=== PATIENT | female | born 1960 | race Caucasian/White ===

== ENCOUNTER 2020-04-02 14:21 | Emergency (ER) | payer MEDICAID ==
[~2020-04-02] VITALS: Ht 165.1 cm; Wt 72.7 kg
[2020-04-02] MEDS ORDERED: ONDANSETRON HCL 4MG/2ML INJ IV STA (15:49)
[2020-04-02] MEDS ORDERED: SODIUM CHLORIDE 0.9% 1,000 ML IV ONE (15:49)
[2020-04-02] MEDS ORDERED: KETOROLAC 30MG/ML VIAL IV STA (15:49)
[2020-04-02 16:57] LABS: BASOPHILS % 0.5 % (0.0-2.0); EOSINOPHILS % 10.7 % (0.0-5.0); HEMATOCRIT. 38.9 % (36.0-48.0); HEMOGLOBIN. 13.3 g/dL (12.0-16.0); LYMPHOCYTES % 29.5 % (20.0-50.0); MEAN CORPUSCULAR HEMOGLOBIN 30.5 pg (28.0-32.0); MEAN CORPUSCULAR VOLUME 89.4 fL (81.0-99.0); MEAN PLATELET VOLUME 8.6 fl (7.4-10.4); MONOCYTES % 11.3 % (2.0-8.0); PLATELET 198 x1000/uL (130-400); RED BLOOD CELL COUNT 4.35 mill/uL (4.2-5.4); RED CELL DISTRIBUTION WIDTH 13.1 % (11.6-14.6)
[2020-04-02 17:07] LABS: PROTHROMBIN TIME 10.2 sec (9.6-11.0)
[2020-04-02 17:48] LABS: CLARITY URINE CLOUDY (CLEAR); COLOR URINE DK YELLOW (YELLOW); KETONES URINE TRACE (NEGATIVE); LEUKOCYTE ESTERASE URINE 1+ (NEGATIVE); NITRITE URINE NEGATIVE (NEGATIVE); OCCULT BLOOD URINE NEGATIVE (NEGATIVE); PH URINE 5.5 (4.5-8.0); PROTEIN URINE 2+ (NEGATIVE); SPECIFIC GRAVITY URINE 1.021 (1.005-1.030)
[2020-04-02 18:14] LABS: *AMPHETAMINES SCREEN URINE NEGATIVE (NEGATIVE); *BARBITURATES SCREEN URINE NEGATIVE (NEGATIVE); *BENZODIAZEPINES SCREEN URINE NEGATIVE (NEGATIVE); *COCAINE SCREEN URINE NEGATIVE (NEGATIVE)
[2020-04-02 18:15] LABS: CANNABINOID URINE SCREEN NEGATIVE (NEGATIVE); METHADONE URINE SCREEN NEGATIVE (NEGATIVE); OPIATES URINE SCREEN NEGATIVE (NEGATIVE); PHENCYCLIDINE URINE SCREEN NEGATIVE (NEGATIVE)
[2020-04-02 19:24] VITALS: BP 155/69
== END 2020-04-02 19:25 | disposition home or self-care (01) ==
LOC: ER 14:21 → EDBD 14:21 → ER 19:25
DX: I73.9 Peripheral vascular disease, unspecified (principal); N30.00 Acute cystitis without hematuria; Z98.890 Other specified postprocedural states
CPT/HCPCS: 36415; 71045; 80048; 80305; 81003; 85025; 85610; 93970; 96361; 96374; 96375; 99285; J1885; J2405; J7030

== ENCOUNTER 2020-08-13 20:28 | Emergency (ER) | payer MEDICAID ==
[~2020-08-13] VITALS: Ht 162.6 cm; Wt 69.0 kg
[2020-08-14 00:43] VITALS: BP 165/80
[2020-08-14] MEDS ORDERED: LIDOCAINE HCL/EPINEPHRINE 1%-EPI 1:100,000 30 ML VIAL INFIL ONE (01:15)
== END 2020-08-14 01:46 | disposition home or self-care (01) ==
LOC: ER 20:28
DX: S01.81XA Laceration without foreign body of other part of head, initial encounter (principal); W01.198A Fall on same level from slipping, tripping and stumbling with subsequent striking against other object, initial encounter; Y93.89 Activity, other specified; Y92.89 Other specified places as the place of occurrence of the external cause; R03.0 Elevated blood-pressure reading, without diagnosis of hypertension
CPT/HCPCS: 12001; 70450; 72125; 99285; Z7610

== ENCOUNTER 2020-08-19 11:43 | Emergency (ER) | payer MEDICAID ==
[~2020-08-19] VITALS: Ht 160 cm; Wt 75.0 kg
[2020-08-19 11:49] VITALS: BP 164/72
[2020-08-19] MEDS ORDERED: ACETAMINOPHEN 325MG TABLET PO ONE (13:00)
== END 2020-08-19 13:14 | disposition home or self-care (01) ==
LOC: ER 11:43
DX: Z48.00 Encounter for change or removal of nonsurgical wound dressing (principal); R03.0 Elevated blood-pressure reading, without diagnosis of hypertension
CPT/HCPCS: 99281

== ENCOUNTER 2020-08-22 10:55 | Emergency (ER) | payer MEDICAID ==
[~2020-08-22] VITALS: Ht 154.9 cm; Wt 67.0 kg
[2020-08-22 11:02] VITALS: BP 158/65
== END 2020-08-22 11:30 | disposition home or self-care (01) ==
LOC: ER 11:26
DX: S01.01XD Laceration without foreign body of scalp, subsequent encounter (principal); M32.9 Systemic lupus erythematosus, unspecified; Z98.890 Other specified postprocedural states; X58.XXXD Exposure to other specified factors, subsequent encounter
CPT/HCPCS: 99281

== ENCOUNTER 2020-08-28 11:38 | Emergency (ER) | payer MEDICAID ==
[~2020-08-28] VITALS: Ht 154.9 cm; Wt 72.0 kg
[2020-08-28 11:57] VITALS: BP 160/73
== END 2020-08-28 12:17 | disposition home or self-care (01) ==
LOC: ER 11:50
DX: Z48.02 Encounter for removal of sutures (principal)
CPT/HCPCS: 99281